=== PATIENT | female | born 1990 | race Caucasian/White ===

== ENCOUNTER 2020-10-22 13:51 | Emergency (ER) | payer BC, SELFPAY ==
[2020-10-22 13:56] VITALS: BP 134/89; PULSE 103; RESP 12; TEMP 36.8; O2SAT 99
--- NOTE | 2020-10-22 14:44 | ED.ANXIETY ---
HPI - Anxiety General Chief Complaint: Anxiety Stated Complaint: ANXIETY/PANIC ATTACKS Source: patient and RN notes reviewed Limitations: no limitations History of Present Illness HPI narrative: The patient, a non-smoker/occ drinker who has a prior history of seizure disease, presents with mood disorder. Patient states that she has a long history of anxiety, was diagnosed with generalized anxiety disorder years ago. She recalls no specific therapy but chart indicates Zoloft in the past. She now has a half month worsening of heart racing, lightheadedness, occasional crying spells especially when she is in crowded areas. This seemed to become noticeable when she went on a recent vacation, worsening in the airports or shopping areas. No substance use/abuse, SI/HI, hallucination, weight loss, guilt, loss of concentration, anhedonia. She has a prior history of seizures for which her last seizure was years ago; advised to follow-up with PMD or neurologist. Related Data Home Medications Medication Instructions Recorded Confirmed levonorgestrel 20 mcg/24 hours (6 1 device I-UTERINE ONCE 10/07/19 10/07/19 yrs) 52 mg intrauterine device Allergies Allergy/AdvReac Type Severity Reaction Status Date / Time No Known Allergies Allergy Verified 08/19/19 10:45 Review of Systems Review of Systems: General/Constitutional: No weight loss,fever Eyes: N0: Redness,discharge Ears/Nose/Throat: No: Epistaxis,ear discharge Respiratory: Denies: Hemoptysis Gastrointestinal: No Vomiting, Bleeding-rectal Skin: No Lumps, eruption Neurologic: No Focal Weakness,Sz Hematologic: Denies: Petechiae/Purpura Psychiatric: No: Suicida ideationl All Other Systems: Reviewed and Negative [facility] Past Medical History Medical History (Updated 10/22/20 @ 14:47 by Jasper Preciado MD) Seizure disorder Surgical History Surgical History [place] teeth extracted Family History Family History Father Hypertension Mother Hypertension Family history of elevated blood lipids Social History Social History Smoking status: Never smoker Alcohol intake: current Comments At time of signature, agree with nursing past medical, surgical, social and family history. There is no relevant family history pertinent to the presenting complaint Exam Narrative: General Appearance: Well appearing, Conjunctiva clear Mouth/Throat: Normal appearing, Normal lips, Supple Respiratory: Airway patent, No respiratory distress Musculoskeletal: Full ROM Skin: Warm, Dry Neurological: A&O x3, CN II-X intact Psychiatric: Slightly anxious mood, Normal affect Course Vital Signs Vital signs: Vital Signs Temperature 98.3 F 10/22/20 13:56 Pulse Rate 103 H 10/22/20 13:56 Respiratory Rate 12 10/22/20 13:56 Blood Pressure 134/89 10/22/20 13:56 Pulse Oximetry 99 10/22/20 13:56 Temperature 98.3 F 10/22/20 13:56 Pulse Rate 103 H 10/22/20 13:56 Respiratory Rate 12 10/22/20 13:56 Blood Pressure 134/89 10/22/20 13:56 Pulse Oximetry 99 10/22/20 13:56 Discharge Plan Discharge Clinical Impression: Generalized anxiety disorder Patient Disposition: Home, Self-Care Condition: Stable Instructions: Panic Disorder (ED) Additional Instructions: See your neurologist who may be of assistance in follow-up; also counseling center [facility] [provided] Prescriptions: New paroxetine HCl [Paxil] 20 mg tablet 20 mg PO QAM Qty: 30 RF: 3 hydroxyzine pamoate [Vistaril] 25 mg capsule 25 mg PO BID PRN (Reason: anxiety) Qty: 20 RF: 1 No Action Mirena 20 mcg/24 hours (5 yrs) 52 mg intrauterine device 1 device I-UTERINE ONCE RF: 0 levetiracetam 500 mg tablet See Rx Instructions .ROUTE .COMPLEX Qty: 180 RF: 3 Follow-up/Referrals: M
== END 2020-10-22 14:55 | disposition home or self-care (01) ==
PROVIDERS: Emergency Provider Emergency Medicine; PCP Family Medicine
DX: F41.1 Generalized anxiety disorder (principal)
CPT/HCPCS: 99213; G0463

== ENCOUNTER 2021-02-07 14:24 | Outpatient (CLI) | payer BC, SELFPAY ==
[2021-02-07 15:58] LABS: SARS-CoV-2 RNA PCR Negative (Negative)
== END 2021-02-07 14:25 | disposition home or self-care (01) ==
LOC: CHSLAB 14:25
PROVIDERS: PCP Family Medicine; Visit Provider Family Medicine
DX: Z20.822 Contact with and (suspected) exposure to COVID-19 (principal)
CPT/HCPCS: C9803; U0003; U0005

== ENCOUNTER 2021-12-20 08:04 | Outpatient (CLI) | payer BC, SELFPAY ==
[2021-12-20 14:40] LABS: Kit Draw Collected
== END 2021-12-20 08:05 | disposition home or self-care (01) ==
LOC: ANHGOSHLAB 08:06
PROVIDERS: PCP Family Medicine; Visit Provider Family Medicine
DX: Z00.00 Encounter for general adult medical examination without abnormal findings (principal); G40.309 Generalized idiopathic epilepsy and epileptic syndromes, not intractable, without status epilepticus; Z53.8 Procedure and treatment not carried out for other reasons
CPT/HCPCS: 99199; 36415

== ENCOUNTER 2022-12-19 10:41 | Outpatient (CLI) | payer BC, SELFPAY ==
[2022-12-19 11:57] LABS: Basophils Percent Auto 0.5 % (0.2-1.2); Eosinophils Absolute Auto 0.1 K/mm3 (0-0.3); Hematocrit 40.3 % (37.0-47.0); Hemoglobin 13.2 g/dL (12.0-15.0); Immature Granulocyte Absolute 0.01 K/mm3 (0.00-0.031); Immature Granulocyte Percent A 0.2 % (0-0.5); Lymphocytes Percent Auto 32.9 % (18.3-44.2); Mean Corpuscular HGB Conc 32.8 g/dl (32-36); Mean Corpuscular Hemoglobin 31.6 pg (26-34); Mean Corpuscular Volume 96.4 fl (80-100); Mean Platelet Volume 9.7 fl (7.4-10.4); Monocytes Absolute Auto 0.6 K/mm3 (0.1-0.6); Monocytes Percent Auto 9.5 % (2.6-8.5); Neutrophils Absolute Auto 3.2 K/mm3 (1.3-6.7); Neutrophils Percent Auto 55.9 % (45.5-73.1); Platelet Count Result 186 k/mm3 (150-375); Red Blood Count 4.18 M/mm3 (4.2-5.4); Red Cell Distribution Width 12.1 % (11.5-14.5); White Blood Count 5.8 K/mm3 (4.5-10.0)
[2022-12-19 12:21] LABS: Alanine Aminotransferase 19 U/L (6-35); Albumin Level 4.2 g/dL (3.5-5.1); Alkaline Phosphatase 53 U/L (38-126); Anion Gap 6 mmol/L (8-16); Aspartate Amino Transferase 38 U/L (14-36); Bilirubin,Total 0.6 mg/dL (0.2-1.3); Blood Urea Nitrogen 10 mg/dL (7-17); Calcium 9.1 mg/dL (8.4-10.2); Carbon Dioxide 30 mmol/L (22-30); Chloride 101 mmol/L (98-107); Cholesterol 195 mg/dL (0-200); Estimated Glomerular Filt Rate > 60; Glucose 82 mg/dL (65-110); HDL Direct 67 mg/dL; Potassium 4.4 mmol/L (3.4-5.0); Sodium 137 mmol/L (137-145); Triglycerides 55 mg/dL (<150)
[2022-12-19 12:35] LABS: LDL Cholesterol Direct 96 mg/dL
[2022-12-19 12:46] LABS: Thyroid Stimulating Hormone 0.667 uIU/mL (0.465-4.680)
== END 2022-12-19 10:42 | disposition home or self-care (01) ==
LOC: ANHGOSHLAB 10:43
PROVIDERS: PCP Family Medicine; Visit Provider Family Medicine
DX: Z00.00 Encounter for general adult medical examination without abnormal findings (principal); Z79.899 Other long term (current) drug therapy
CPT/HCPCS: 36415; 80053; 80061; 84443; 85025

== ENCOUNTER 2023-12-24 08:53 | Outpatient (CLI) | payer BC, SELFPAY ==
[2023-12-24 13:35] LABS: Alanine Aminotransferase 15 U/L (6-35); Albumin Level 4.5 g/dL (3.5-5.1); Alkaline Phosphatase 60 U/L (38-126); Anion Gap 8 mmol/L (4-12); Aspartate Amino Transferase 57 U/L (14-36); Bilirubin,Total 0.9 mg/dL (0.2-1.3); Blood Urea Nitrogen 13 mg/dL (7-17); Calcium 9.2 mg/dL (8.4-10.2); Carbon Dioxide 28 mmol/L (22-30); Chloride 100 mmol/L (98-107); Cholesterol 213 mg/dL (0-200); Estimated Glomerular Filt Rate > 60; Glucose 80 mg/dL (65-110); HDL Direct 69 mg/dL; Potassium 4.5 mmol/L (3.4-5.0); Sodium 136 mmol/L (137-145); Triglycerides 67 mg/dL (<150)
[2023-12-24 13:44] LABS: Basophils Percent Auto 0.6 % (0.2-1.2); Eosinophils Absolute Auto 0.1 K/mm3 (0-0.3); Eosinophils Percent Auto 0.8 % (0-4.4); Hematocrit 42.9 % (37.0-47.0); Hemoglobin 13.9 g/dL (12.0-15.0); Immature Granulocyte Absolute 0.01 K/mm3 (0.00-0.031); Immature Granulocyte Percent A 0.2 % (0-0.5); Lymphocytes Absolute Auto 1.07 K/mm3 (0.9-3.2); Lymphocytes Percent Auto 16.6 % (18.3-44.2); Mean Corpuscular HGB Conc 32.4 g/dl (32-36); Mean Corpuscular Hemoglobin 31.1 pg (26-34); Mean Platelet Volume 10.3 fl (7.4-10.4); Monocytes Absolute Auto 0.6 K/mm3 (0.1-0.6); Monocytes Percent Auto 8.7 % (2.6-8.5); Neutrophils Absolute Auto 4.7 K/mm3 (1.3-6.7); Neutrophils Percent Auto 73.1 % (45.5-73.1); Platelet Count Result 206 k/mm3 (150-375); Red Blood Count 4.47 M/mm3 (4.2-5.4); White Blood Count 6.5 K/mm3 (4.5-10.0)
[2023-12-24 13:46] LABS: LDL Cholesterol Direct 102 mg/dL
[2023-12-26 11:58] LABS: Levetiracetam Keppra 6.9 mcg/mL (6.0-46.0)
== END 2023-12-24 08:54 | disposition home or self-care (01) ==
LOC: ANHGOSHLAB 08:55
PROVIDERS: PCP Family Medicine; Visit Provider Family Medicine
DX: Z00.00 Encounter for general adult medical examination without abnormal findings (principal); G40.309 Generalized idiopathic epilepsy and epileptic syndromes, not intractable, without status epilepticus
CPT/HCPCS: 36415; 80053; 80061; 80177; 85025